=== PATIENT | female | born 1955 | race American Indian/Alaskan Native ===

== ENCOUNTER 2021-03-25 12:04 | Emergency (ER) | payer OTHER ==
--- NOTE | 2021-03-25 13:15 | Emergency Department Report ---
ED General Adult HPI - General Chief complaint: Animal Bite Stated complaint: DOG BITE Time Seen by Provider: 03/25/21 13:00 Source: patient Mode of arrival: Ambulatory Limitations: No Limitations - History of Present Illness Initial comments: 65-year-old -[place] female patient presents with complaints of dog bites to her knees bilaterally. Patient states while at the dog park today, a dog she is somewhat familiar with got loose from its joint cleaning machine operator and attacked her dog. She states she believes she was bitten while trying to pop the attack. Patient states she has puncture wounds to her right knee and a single puncture wound to the left knee. She states her tetanus vaccine is within the last 5 years. She denies any bony pain or other symptoms. Patient states she is unsure of the dogs vaccine status - Related Data Previous Rx's Medication Instructions Recorded Last Taken Type Amoxicillin/Potassium Clav 1 each PO BID 7 Days #14 tablet 03/25/21 Unknown Rx [Augmentin 875-125 Tablet] Mupirocin [Bactroban 2% OINT] 1 applic TP TID 7 Days #1 tube 03/25/21 Unknown Rx Allergies Allergy/AdvReac Type Severity Reaction Status Date / Time No Known Allergies Allergy Verified 03/25/21 12:06 ED Review of Systems ROS: Stated complaint: DOG BITE Other details as noted in HPI Constitutional: denies: chills, fever Cardiovascular: denies: chest pain Musculoskeletal: denies: joint swelling, arthralgia Skin: denies: change in color Neurological: denies: numbness, paresthesias, abnormal gait ED Past Medical Hx - Past Medical History Previous Medical History?: No - Surgical History Past Surgical History?: No - Social History Smoking Status: Current Every Day Smoker Substance Use Type: None - Medications Home Medications: Home Medications Medication Instructions Recorded Confirmed Last Taken Type Amoxicillin/Potassium Clav 1 each PO BID 7 Days #14 tablet 03/25/21 Unknown Rx [Augmentin 875-125 Tablet] Mupirocin [Bactroban 2% OINT] 1 applic TP TID 7 Days #1 tube 03/25/21 Unknown Rx ED Physical Exam - General Limitations: No Limitations General appearance: alert, in no apparent distress - Head Head exam: Present: atraumatic, normocephalic - Eye Eye exam: Present: normal appearance. Absent: scleral icterus - Respiratory Respiratory exam: Absent: respiratory distress - Cardiovascular Cardiovascular Exam: Present: regular rate - Neurological Exam Neurological exam: Present: alert, oriented X3, normal gait - Psychiatric Psychiatric exam: Present: normal affect, normal mood - Skin Skin exam: Present: warm, dry, normal color, abrasion (Bilaterally to knees, small, nonbleeding). Absent: intact (2 small minimally bleeding puncture wounds noted to right anterior knee and 1 single puncture wound noted to left anterior knee without active bleeding; no surrounding erythema noted; normal range of motion of the knees noted bilaterally), rash ED Course Vital Signs 03/25/21 12:11 Temperature 98.4 F Pulse Rate 67 Respiratory 18 Rate Blood Pressure 167/82 O2 Sat by Pulse 100 Oximetry ED Medical Decision Making - Medical Decision Making 65-year-old -[place] female patient presents with complaints of dog bites to her knees bilaterally. Patient states while at the dog park today, a dog she is somewhat familiar with got loose from its joint cleaning machine operator and attacked her dog. She states she believes she was bitten while trying to pop the attack. Patient states she has puncture wounds to her right knee and a single puncture wound to the left knee. She states her tetanus vaccine is within the last 5 years. She denies any bony pain or other symptoms. Patient states she is unsure of the dogs vaccine status Patient given rabies immunoglobulin and vaccine. Wounds were irrigated with saline, dressed in Neosporin, and a sterile dressing. She is well-appearing and stable for discharge home. Patient given rabies vaccine follow-up form and informed to receive her next vaccination in 3 days with the health department. Strict return precautions were discussed in detail with patient who verbalizes understanding. Critical care attestation.: If time is entered above; I have spent that time in minutes in the direct care of this critically ill patient, excluding procedure time. ED Disposition Clinical Impression: Dog bite Disposition: [id number] TO HOME OR SELFCARE Is pt being admited?: No Condition: Stable Instructions: Animal Bite, Adult Prescriptions: Amoxicillin/Potassium Clav [Augmentin 875-125 Tablet] 1 each PO BID 7 Days #14 tablet Mupirocin [Bactroban 2% OINT] 1 applic TP TID 7 Days #1 tube Referrals: [facility] [Provider Group] - 3-5 Days
[2021-03-25] MEDS ORDERED: RABIES IMMUNE GLOBULIN P/F 300 UNIT/ML INJ 5 ML IM NR ×2 (13:30→15:00)
[2021-03-25] MEDS ORDERED: RABIES VACCINE, HUMAN DIPLOID/PF 2.5 UNIT/ML VIAL IM ONE ×2 (13:30→15:00)
[2021-03-25] MEDS ORDERED: NEOMY 3.5 MG/BACIT 400 UNITS/POLY B 5000 UNITS/GM OINT PACKET TP STA (13:30)
[2021-03-25 13:32] VITALS: BP 167/82
[2021-03-25] MEDS ORDERED: RABIES IMMUNE GLOBULIN P/F 300 UNIT/ML INJ 5 ML IM ONE (15:00)
== END 2021-03-25 15:22 | disposition home or self-care (01) ==
LOC: ED 12:04
DX: S81.051A Open bite, right knee, initial encounter (principal); S81.052A Open bite, left knee, initial encounter; F17.200 Nicotine dependence, unspecified, uncomplicated; Z79.2 Long term (current) use of antibiotics; Z79.899 Other long term (current) drug therapy; W54.0XXA Bitten by dog, initial encounter; Y93.89 Activity, other specified; Y92.89 Other specified places as the place of occurrence of the external cause; Y99.8 Other external cause status
CPT/HCPCS: 90375; 90471; 90675; 96372; 99282; A6250